=== PATIENT | male | born 1945 | race Two or more races ===

== ENCOUNTER 2020-06-10 09:26 | Emergency (ER) | payer OTHER ==
[~2020-06-10] VITALS: Ht 167.6 cm; Wt 65.8 kg
[2020-06-10] MEDS ORDERED: NORFLEX100MG PO (11:55)
[2020-06-10] MEDS ORDERED: KETO10TA2 PO (11:55)
== END 2020-06-10 12:16 | disposition home or self-care (01) ==
LOC: ER 09:26
DX: M54.5 Low back pain (principal); M54.2 Cervicalgia

== ENCOUNTER 2020-06-19 07:19 | Outpatient (CLI) | payer OTHER | END 2020-06-19 07:31 | disposition home or self-care (01) | LOC: LAB 07:19 | DX: Z13.1 Encounter for screening for diabetes mellitus (principal); M62.838 Other muscle spasm; Z13.220 Encounter for screening for lipoid disorders; Z12.11 Encounter for screening for malignant neoplasm of colon; Z12.5 Encounter for screening for malignant neoplasm of prostate ==

== ENCOUNTER → 2020-06-19 | Outpatient (CLI) | payer OTHER ==
[~2020-06-19] MED LIST: KETO10TA2 PO; NORFLEX100MG PO
== END | disposition home or self-care (01) ==
LOC: SONOGRAMA 07:56 → MAMO-SONO 08:15
PROVIDERS: ATTEND Specialist
DX: N20.0 Calculus of kidney (principal)

== ENCOUNTER 2020-06-22 08:41 | Outpatient (CLI) | payer OTHER | END 2020-06-22 08:46 | disposition home or self-care (01) | LOC: LAB 08:41 | PROVIDERS: ATTEND Specialist | DX: Z13.29 Encounter for screening for other suspected endocrine disorder (principal); M62.838 Other muscle spasm; Z13.220 Encounter for screening for lipoid disorders; Z12.11 Encounter for screening for malignant neoplasm of colon; Z12.5 Encounter for screening for malignant neoplasm of prostate ==

== ENCOUNTER 2020-07-19 07:28 | Outpatient (CLI) | payer OTHER | END 2020-07-19 07:43 | disposition home or self-care (01) | LOC: LAB 07:28 | PROVIDERS: ATTEND Urology | DX: N20.0 Calculus of kidney (principal) ==

== ENCOUNTER 2020-07-22 09:28 | Outpatient (CLI) | payer OTHER | END 2020-07-22 18:00 | disposition home or self-care (01) | LOC: LAB 09:28 | PROVIDERS: ATTEND Urology | DX: N20.0 Calculus of kidney (principal) ==

== ENCOUNTER 2020-07-23 08:26 | Outpatient (CLI) | payer OTHER | END 2020-07-23 08:41 | disposition home or self-care (01) | LOC: LAB 08:26 | PROVIDERS: ATTEND Urology | DX: N20.0 Calculus of kidney (principal) ==

== ENCOUNTER 2022-07-15 08:19 | Emergency (ER) | payer OTHER ==
[~2022-07-15] VITALS: Ht 167.6 cm; Wt 65.8 kg
[2022-07-15] MEDS ORDERED: PAXLOVID 300-11 EACH PO (11:39)
[2022-07-15] MEDS ORDERED: ZYRTEC10 M3 PO (11:39)
[2022-07-15] MEDS ORDERED: TUSSI-PRES LIQ474 ML PO (11:39)
== END 2022-07-15 11:56 | disposition home or self-care (01) ==
LOC: ER 08:19
DX: B34.9 Viral infection, unspecified (principal); Z20.822 Contact with and (suspected) exposure to COVID-19

== ENCOUNTER 2023-12-07 05:15 | Day surgery (SDC) | payer OTHER ==
[2023-11-30 08:02] LABS: HEMATOCRIT 43.5 % (39.0-48.0); HEMOGLOBIN 14.9 g/dL (13-16.00); MEAN CELL VOLUME 90.3 fL (80.0-100.00); MEAN CORPUSCULAR HGB CONC 34.3 g/dl (32.0-36.0); PLATELET COUNT 170 K/uL (150-450); RED BLOOD COUNT 4.81 M/uL (4.00-6.00); RED CELL DISTRIBUTION WIDTH 12.8 % (11.5-14.5)
[2023-11-30 08:07] LABS: PH,URINE 6.5 (5.0-8.0); URINE APPEARANCE Clear; URINE BILIRRUBIN Negative (NEGATIVE); URINE BLOOD Negative; URINE COLOR Yellow; URINE GLUCOSE Negative (NEGATIVE); URINE LEUKOCYTE Small; URINE NITRATE Negative; URINE PROTEIN Negative (NEGATIVE)
[2023-11-30 08:12] LABS: URINE BACTERIA 46.5 uL (0.0-1933); URINE RBC 26.1 uL (0.0-20.8); URINE WBC 218.5 uL (0.0-23.2)
[2023-11-30 08:25] LABS: INR 1.02; PARTIAL THROMBOPLASTIN TIME 26.9 SECONDS (22.0-34.0); PROTHROMBIN TIME 10.7 SECONDS (9.0-11.5)
[2023-11-30 08:33] LABS: ALBUMIN 3.8 gm/dL (3.4-5.0); BILIRUBIN TOTAL 0.57 mg/dL (0.3-1.2); CALCIUM 9.7 mg/dL (8.5-10.1); CREATININE SERUM 0.96 mg/dL (0.70-1.30); GFR 76.15; GLOBULINA 3.6 G/DL (2.4-3.5); POTASSIUM 4.81 mEq/L (3.5-5.1); TOTAL PROTEIN 7.4 gm/dL (6.4-8.2)
[~2023-12-07] VITALS: Ht 167.6 cm; Wt 66.2 kg
[~2023-12-07 05:15] MED LIST changes: +PAXLOVID 300-11 EACH PO; +TUSSI-PRES LIQ474 ML PO; +ZYRTEC10 M3 PO
[2023-12-07] MEDS ORDERED: CEFAZOLIN SODIUM 1,000 MG VIAL IV ONE (08:30)
[2023-12-07] MEDS ORDERED: MORPHINE SULFATE 4 MG/ML VIAL IV ONE (10:30)
== END 2023-12-07 11:50 | disposition home or self-care (01) ==
LOC: CIR.AMB 05:15
PROVIDERS: ATTEND Surgery
DX: K80.20 Calculus of gallbladder without cholecystitis without obstruction (principal)

== ENCOUNTER 2024-02-04 08:02 | Outpatient (CLI) | payer OTHER ==
[2024-02-04 08:40] LABS: HEMATOCRIT 43.1 % (39.0-48.0); HEMOGLOBIN 14.6 g/dL (13-16.00); MEAN CORPUSCULAR HEMOGLOBIN 31.1 pg (27.00-32.0); MEAN CORPUSCULAR HGB CONC 33.8 g/dl (32.0-36.0); PLATELET COUNT 178 K/uL (150-450); RED BLOOD COUNT 4.69 M/uL (4.00-6.00); RED CELL DISTRIBUTION WIDTH 13.5 % (11.5-14.5)
[2024-02-04 09:33] LABS: ALBUMIN 3.9 gm/dL (3.4-5.0); BILIRUBIN TOTAL 0.48 mg/dL (0.3-1.2); CALCIUM 9.4 mg/dL (8.5-10.1); CREATININE SERUM 0.92 mg/dL (0.70-1.30); GFR 79.99; GLOBULINA 3.7 G/DL (2.4-3.5); POTASSIUM 5.2 mEq/L (3.5-5.1); TOTAL PROTEIN 7.6 gm/dL (6.4-8.2)
== END 2024-02-04 08:08 | disposition home or self-care (01) ==
LOC: LAB 08:02
DX: C23 Malignant neoplasm of gallbladder (principal)

== ENCOUNTER 2024-02-07 07:06 | Outpatient (CLI) | payer OTHER | END 2024-02-07 07:15 | disposition home or self-care (01) | LOC: MRI 07:06 | DX: C23 Malignant neoplasm of gallbladder (principal) | CPT/HCPCS: 74182 ==